=== PATIENT | female | born 1995 | race Caucasian/White ===

== ENCOUNTER 2019-12-30 17:08 | Emergency (ER) | payer BC ==
[~2019-12-30] VITALS: Ht 162.6 cm; Wt 59.0 kg
--- NOTE | 2019-12-30 17:10 | NUR ---
ED Nurse Note: Pt brought in by ambulance from home c/o right foot pain after mechanical fall out of bed. Pt reports hearing the bones "crack." Minimal swelling noted on left foot. Respirations even and unlabored on room air. Vitals stable as documented.
--- NOTE | 2019-12-30 17:25 | NUR ---
ED Nurse Note: xray @ bedside
--- NOTE | 2019-12-30 17:29 | Emergency Room Report ---
History of Present Illness General Chief Complaint: Lower Extremity Injury Source: Patient Present Illness HPI 24-year-old female with history of anxiety and depression currently taking Celexa brought in by paramedics due to fall and injury of right foot. Patient reports that she lost balance is walking and tripped and fell on her right foot rates the pain 10 out of 10 without radiation. Has full range of motion however reports that moving her toes will cause her extreme pain. Patient is actively crying complaining of a lot of pain. Reports that she has not felt numbness. Denies all other injuries. Denies head injury or loss of consciousness. Denies . Allergies: Coded Allergies: No Known Allergies (Unverified , 12/30/19) COVID-19 Screening Contact w/high risk pt: No Experienced COVID-19 symptoms?: No COVID-19 Testing performed RENDERING EQUIPMENT TENDER: No Patient History Past Medical History: see triage record Past Surgical History: none Pertinent Family History: none Last Menstrual Period: 12/27/19 Now: No Immunizations: UTD Reviewed Nursing Documentation: PMH: Agreed; PSxH: Agreed Nursing Documentation-PMH Past Medical History: No Stated History Review of Systems All Other Systems: negative except mentioned in HPI Physical Exam Vital Signs Date Time Temp Pulse Resp B/P (MAP) Pulse Ox O2 Delivery O2 Flow Rate FiO2 12/30/19 17:04 98.2 85 17 101/72 (82) 99 Room Air Sp02 EP Interpretation: reviewed, normal General Appearance: no apparent distress, alert, GCS 15, non-toxic Head: normocephalic, atraumatic Eyes: bilateral eye normal inspection, bilateral eye PERRL ENT: hearing grossly normal, normal pharynx, no angioedema, normal voice Neck: full range of motion, supple/symm/no masses Respiratory: chest non-tender, lungs clear, normal breath sounds, speaking full sentences Cardiovascular #1: regular rate, rhythm, no edema Cardiovascular #2: 2+ carotid (R), 2+ carotid (L), 2+ radial (R), 2+ radial (L), 2+ dorsalis pedis (R), 2+ dorsalis pedis (L) Gastrointestinal: normal bowel sounds, non tender, soft, non-distended, no guarding, no rebound Musculoskeletal: back normal, normal range of motion, gait/station normal, non- tender Neurologic: alert, motor strength/tone normal, oriented x3, sensory intact, responsive, speech normal Psychiatric: judgement/insight normal, memory normal, mood/affect normal, no suicidal/homicidal ideation Skin: no rash Lymphatic: no adenopathy Procedures Splinting Splinting : Consent: Verbal Location: foot X ray Hand-Made Type: plaster Pre-Proc Neuro Vasc Exam: normal Post-Proc Neuro Vasc Exam: normal Patient Tolerated: Well Complications: None Medical Decision Making PA Attestation All diagnoses and treatment plans were reviewed and discussed with my supervising physician Dr. Villalobos Diagnostic Impression: Primary Impression: Foot contusion ER Course 24-year-old female with history of anxiety and depression currently taking Celexa brought in by paramedics due to fall and injury of right foot. Patient reports that she lost balance is walking and tripped and fell on her right foot rates the pain 10 out of 10 without radiation. Has full range of motion however reports that moving her toes will cause her extreme pain. Patient is actively crying complaining of a lot of pain. Reports that she has not felt numbness. Denies all other injuries. Denies head injury or loss of consciousness. Denies . Ddx considered but are not limited to: foot fracture, foot sprain, foot contusion, foot strain Vital signs: are WNL, pt. is afebrile H&PE are most consistent with: foot contusion ORDERS: foot Xray , motrin, tylenol, Robaxin ED INTERVENTIONS: Toradol IM, [place] p.o., symptomatic splint applied Upon discharging patient and discharge her there was no fracture based on radiology report with the splint for symptom relief patient demanded getting) the only thing I will not get her second ibuprofen Tylenol for her. Patient reported that her dad just call her and told her that she needs to get Vicodin as her dad is a conciliator. Drug-seeking behavior has been observed. I explained to patient that due to the injury that she is having it is not recommended to take any narcotics and needs to follow-up with primary doctor for further evaluation. Also when I told patient I can add a nondrowsy muscle relaxant patient agreed. Patient asked for a copy of the report and after seeing that there is no fracture found to get a report back to me reported does not want to keep a copy. DISCHARGE: At this time pt. is stable for d/c to home. Will provide printed patient care instructions, and any necessary prescriptions. Care plan and follow up instructions have been discussed with the patient prior to discharge. Advised patient to follow-up with, if worsening symptoms return to the emergency room Other X-Ray Diagnostic Results Other X-Ray Diagnostic Results : X-Ray ordered: Right foot # of Views/Limited Vs Complete: 3 View Indication: Pain EP Interpretation: Yes PA Xray: Interpretation reviewed, by supervising MD, and agrees with findings. Electronically Signed by: Collin Champion PA-C Last Vital Signs Date Time Temp Pulse Resp B/P (MAP) Pulse Ox O2 Delivery O2 Flow Rate FiO2 12/30/19 17:04 98.2 85 17 101/72 (82) 99 Room Air Disposition: HOME, SELF-CARE Condition: Stable Scripts Methocarbamol* (ROBAXIN-500*) 500 Mg Tablet 500 MG ORAL TID, #10 TAB 0 Refills Prov: Collin Thayer 12/30/19 Acetaminophen* (TYLENOL EXTRA STRENGTH*) 500 Mg Tablet 500 MG ORAL Q8H PRN for Prn Headache/Temp > 101, #30 TAB 0 Refills Prov: Collin Thayer 12/30/19 Ibuprofen (Ibu) 800 Mg Tablet 800 MG PO TID, #30 TAB Prov: Collin Thayer 12/30/19 Patient Instructions: Foot Contusion Additional Instructions: Take medication as directed, keep the splint on until seen by orthopedist, if worsening symptoms return to the emergency room oCllin Thayer Dec 30, 2019 17:29
[2019-12-30] MEDS ORDERED: Ketorolac 30mg Inj IM ONE (17:30)
[2019-12-30] MEDS ORDERED: HYDROcodone/Acetamin 5/325 tab ORAL ONE (17:30)
--- NOTE | 2019-12-30 17:49 | Diagnostic Imaging Report ---
EXAM: XR Right Foot Complete, 3 or More Views CLINICAL HISTORY: TRAUMA TECHNIQUE: Frontal, lateral and oblique views of the right foot. COMPARISON: No relevant prior studies available. FINDINGS: Bones/joints: Unremarkable. No acute fracture. No dislocation. Soft tissues: Unremarkable. IMPRESSION: Normal right foot x-rays.
[2019-12-30] MEDS ORDERED: IBU800 MG PO (18:05)
[2019-12-30] MEDS ORDERED: TYLENOL EXTRA500 MG ORAL (18:05)
[2019-12-30] MEDS ORDERED: ROBAXIN-500MG ORAL (18:22)
--- NOTE | 2019-12-30 18:34 | NUR ---
ER DISCHARGE NOTE: Patient is cleared to be discharged per ERMD, pt is aox4, on room air, with stable vital signs. pt was given dc and prescription instructions, pt was able to verbalize understanding, pt id band removed. pt is able to ambulate with steady gait with crutches. pt took all belongings. pt had no shoes provided pt with hospital socks. pt friend will pick her up.
[2019-12-30 18:35] VITALS: BP 110/79
== END 2019-12-30 18:33 | disposition home or self-care (01) ==
LOC: EDBD 17:08 → EMR 17:25
DX: S90.31XA Contusion of right foot, initial encounter (principal); W01.0XXA Fall on same level from slipping, tripping and stumbling without subsequent striking against object, initial encounter; Y93.01 Activity, walking, marching and hiking; Y92.9 Unspecified place or not applicable; F41.9 Anxiety disorder, unspecified; F32.9 Major depressive disorder, single episode, unspecified; Z79.899 Other long term (current) drug therapy
CPT/HCPCS: 29515; 73630; 96372; 99283; J1885